=== PATIENT | male | born 1950 | race Caucasian/White ===

== ENCOUNTER → 2024-01-20 10:01 | Outpatient (CLI) | payer BC, SELFPAY | LOC: LAB 10:02 | PROVIDERS: PCP Family Medicine; Visit Provider Urology | DX: R39.9 Unspecified symptoms and signs involving the genitourinary system (principal) | CPT/HCPCS: 87086 ==

== ENCOUNTER → 2024-01-20 10:34 | Outpatient (CLI) | payer BC, SELFPAY ==
[2024-01-20 13:18] LABS: Prostate Specific Antigen 4.02 ng/mL (0.10-4.00)
== END ==
PROVIDERS: PCP Family Medicine; Referring Provider Urology; Visit Provider Urology
DX: R39.9 Unspecified symptoms and signs involving the genitourinary system (principal); Z87.898 Personal history of other specified conditions
CPT/HCPCS: 36415; 84153; 87086

== ENCOUNTER → 2024-03-16 15:52 | Outpatient (CLI) | payer BC, SELFPAY | PROVIDERS: PCP Family Medicine; Visit Provider Urology | DX: R39.9 Unspecified symptoms and signs involving the genitourinary system (principal); Z87.898 Personal history of other specified conditions; N40.1 Benign prostatic hyperplasia with lower urinary tract symptoms; N13.8 Other obstructive and reflux uropathy; R97.20 Elevated prostate specific antigen [PSA]; R33.9 Retention of urine, unspecified; Z77.22 Contact with and (suspected) exposure to environmental tobacco smoke (acute) (chronic); Z68.42 Body mass index [BMI] 45.0-49.9, adult | CPT/HCPCS: 51798; 81002; 87086 ==

== ENCOUNTER → 2025-03-22 14:27 | Outpatient (CLI) | payer BC, SELFPAY ==
--- NOTE | 2025-03-22 14:50 | EKG_ITS ---
[facility] [address] [address] Test Date: 2025-03-22 Pat Name: Marcus Neal Department: [facility] Room: Gender: Male Director Motion Picture: SUSAN : 1950 Requested By: Order Number: [id number] Reading MD: Antonio Grimaldo MD Measurements Intervals [place] Rate: 67 P: 64 NE: 184 QRS: 12 QRSD: 82 T: 37 QT: 396 QTc: 418 Interpretive Statements Normal sinus rhythm Electronically Signed On 03-22-2025 16:34:33 PST by Antonio Grimaldo MD
[2025-03-22 14:56] LABS: UR Morphine/Opiate cutoff 300 Negative (Negative); Ur Specific Gravity Normal (Normal); Urine MDMA Negative (Negative); Urine Methamphetamines Negative (Negative); Urine Tetrahydrocannabinol Negative (Negative); Urine Tricyclic Antidepressant Negative (Negative)
[2025-03-22 15:25] LABS: Microalbumi Creatinin Ratio Ur 21.0 ug/mg CR (<30)
[2025-03-22 16:16] LABS: Add Manual Diff / Slide Review NO; Hematocrit 41.5 % (41-53); Hemoglobin 14.3 g/dL (13.5-17.5); Lymphocytes Absolute Auto 1300 /uL (1100-4500); Mean Corpuscular HGB Conc 34.4 % (30-36); Mean Corpuscular Hemoglobin 30.9 PG (26-34); Mean Corpuscular Volume 89.7 fL (80-100); Platelet Count 231 X10^3/uL (150-400)
[2025-03-22 16:39] LABS: Alanine Aminotransferase 30 IU/L (<50); Albumin 4.6 g/dL (3.5-5.0); Albumin Globulin Ratio 1.9 (1.0-2.8); Alkaline Phosphatase 54 U/L (38-126); Blood Urea Nitrogen 18 mg/dL (9-20); Calcium 9.8 mg/dL (8.4-10.2); Carbon Dioxide 22 mmol/L (22-32); Chloride 108 mmol/L (98-107); Cholesterol 125 mg/dL (140-199); Estimated Glomerular Filt Rate > 60 mL/min (>60); Globulin 2.4 g/dL (1.7-4.1); Glucose 78 mg/dL (70-99); HDL Cholesterol 62 mg/dL (40-60); HEMOLYSIS < 15 (0-50); Potassium 4.0 mmol/L (3.4-5.1); Sodium 143 mmol/L (137-145); Total Protein 7.0 g/dL (6.3-8.2); Triglycerides 109 mg/dL (35-150)
[2025-03-22 17:40] LABS: Hep C Virus Ab w/Reflex Quant NEGATIVE s/c (NEGATIVE)
== END ==
PROVIDERS: PCP Family Medicine; Referring Provider Family Medicine; Visit Provider Family Medicine
DX: Z11.59 Encounter for screening for other viral diseases (principal); I25.10 Atherosclerotic heart disease of native coronary artery without angina pectoris; I10 Essential (primary) hypertension; R97.20 Elevated prostate specific antigen [PSA]; N52.9 Male erectile dysfunction, unspecified; E66.01 Morbid (severe) obesity due to excess calories; F13.20 Sedative, hypnotic or anxiolytic dependence, uncomplicated; Z68.43 Body mass index [BMI] 50.0-59.9, adult; Z79.899 Other long term (current) drug therapy
CPT/HCPCS: 36415; 80053; 80061; 80305; 82043; 82570; 85025; 86803; 93005